=== PATIENT | male | born 1965 | race Caucasian/White ===

== ENCOUNTER 2018-02-11 08:51 | Inpatient (IN) | payer OTHER ==
[2018-02-11 09:32] VITALS: BMI 40.6
--- NOTE | 2018-02-11 11:49 | HP ---
CIWA Score Nausea/Vomitin Muscle Tremors: 2 Anxiety: 2 Agitation: 2 Paroxysmal Sweats: 1-Minimal Palms Moist Orientation: 0-Oriented Tacttile Disturbances: 1-Very Mild Itch/Numbness Auditory Disturbances: 1-Very Mild Visual Disturbances: 1-Very Mild Sensitivity Headache: 2-Mild CIWA-Ar Total Score: 14 - Admission Criteria OASAS Guidelines: Admission for Medically Managed Detox: Requires at least one of the followin. CIWA greater than 12 2. Seizures within the past 24 hours 3. Delirium tremens within the past 24 hours 4. Hallucinations within the past 24 hours 5. Acute intervention needed for co occurring medical disorder 6. Acute intervention needed for co occurring psychiatric disorder 7. Severe withdrawal that cannot be handled at a lower level of care (continued vomiting, continued diarrhea, abnormal vital signs) requiring intravenous medication and/or fluids 8. Patient presents the following: CIWA greater than 12 Admission Criteria Met: Admission criteria met Admission ROS BHS - HPI Chief Complaint: i need help to stop drinking alcohol Allergies/Adverse Reactions: Allergies Allergy/AdvReac Type Severity Reaction Status Date / Time chicken derived Allergy Severe Verified 02/11/18 10:12 Fish Containing Products Allergy Unknown Verified 02/11/18 10:12 No Known Drug Allergies Allergy Verified 02/11/18 10:12 turkey Allergy Intermediate Uncoded 02/11/18 10:12 History of Present Illness: this 52 years old male with alcohol dependence,seeing detox,withdrawal symptom, extensive history of alcoholism since age of 18, history of htn,type 2 dm,nicotine dependence nicotine dependence s/p repair of umbilical hernia in [place] 2017 longest period of sobriety 4 months old mi with stent history of repair incisional hernia Exam Limitations: No Limitations - Ebola screening Have you traveled outside of the country in the last 21 days: No Have you had contact with anyone from an Ebola affected area: No Have you been sick,other than usual withdrawal symptoms: No - Review of Systems Constitutional: Malaise, Night Sweats, Changes in sleep, Unintentional Wgt. Loss EENT: reports: Nose Congestion Respiratory: reports: No Symptoms reported Cardiac: reports: No Symptoms Reported GI: reports: Nausea, Poor Appetite, Abdominal cramping, Other (s/p repair of umbilical hrnia) : reports: No Symptoms Reported Musculoskeletal: reports: Muscle Pain Integumentary: reports: Dryness Neuro: reports: Headache, Tremors Endocrine: reports: No Symptoms Reported Hematology: reports: No Symptoms Reported Psychiatric: reports: No Sypmtoms Reported, Judgement Intact, Mood/Affect Appropiate, Orientated x3 Patient History - Patient Medical History Hx Anemia: No Hx Asthma: No Hx Chronic Obstructive Pulmonary Disease (COPD): No Hx Cancer: No Hx Cardiac Disorders: No Hx Congestive Heart Failure: No Hx Hypertension: Yes (on med) Hx Hypercholesterolemia: Yes (on med; lipitor 20 mg daily) Hx Pacemaker: No HX Cerebrovascular Accident: No Hx Seizures: No Hx Dementia: No Hx Diabetes: Yes (metformin 500 mg bid) Hx Gastrointestinal Disorders: No Hx Liver Disease: No Hx Genitourinary Disorders: No Hx Sexually Transmitted Disorders: No Hx Renal Disease (ESRD): No Hx Thyroid Disease: No Hx Human Immunodeficiency Virus (HIV): No (NEGATIVE HX last 12/21 ) Hx Hepatitis C: No (DENIES) Hx Depression: No Hx Suicide Attempt: No Hx Bipolar Disorder: No Hx Schizophrenia: No Other Medical History: no suicidal,no homicidal - Patient Surgical History Past Surgical History: Yes Hx Neurologic Surgery: No Hx Cataract Extraction: No Hx Cardiac Surgery: Yes (heart attack x1, 5 stents - 2011; 6 STENTS NOW,LAST ONE 2016.) Hx Lung Surgery: No Hx Breast Surgery: No Hx Breast Biopsy: No Hx Abdominal Surgery: Yes (umblical hernia repair [id number] [place]) Hx Appendectomy: No Hx Cholecystectomy: No Hx Genitourinary Surgery: No Hx Section: No Hx Orthopedic Surgery: No Anesthesia Reaction: No - PPD History Previous Implant?: Yes Date: 07/17/13 Results: 0MM PPD to be Administered?: Yes - Smoking Cessation Smoking history: Current every day smoker Have you smoked in the past 12 months: Yes Aproximately how many cigarettes per day: 20 Cigars Per Day: 0 Hx Chewing Tobacco Use: No Initiated information on smoking cessation: Yes 'Breaking Loose' booklet given: 02/11/18 - Substance & Tx. History Hx Alcohol Use: Yes Hx Substance Use: Yes Substance Use Type: Alcohol, Cocaine Hx Substance Use Treatment: Yes ([facility] 12/01/17 o 12/03/17 not completed) - Substances Abused Alcohol Route: Oral Frequency: 3-6 times per week Amount used: 2 pint-1 liter of rum Age of first use: 18 Date of Last Use: 02/10/18 Cocaine Route: Inhalation Frequency: 1-2 times per week Amount used: $90 Age of first use: 20 Date of Last Use: 02/09/18 Family Disease History - Family Disease History Family Disease History: Diabetes: Brother (ASTHMA), Sister (ASTHMA, DM), Other: Mother (ASTHMA) Admission Physical Exam BHS - Vital Signs Vital Signs: Vital Signs - 24 hr 02/11/18 09:26 Temperature 96.4 F L Pulse Rate 88 Respiratory 18 Rate Blood Pressure 149/90 - Physical General Appearance: Yes: Moderate Distress, Obese HEENTM: Yes: Normal ENT Inspection, YUKI, Pharynx Normal Respiratory: Yes: Lungs Clear, Normal Breath Sounds, No Respiratory Distress Neck: Yes: Within Normal Limits, Supple, Trachea in good position Breast: Yes: Within Normal Limits Cardiology: Yes: Within Normal Limits, Regular Rhythm, Regular Rate, S1, S2 Abdominal: Yes: Within Normal Limits, Normal Bowel Sounds, Non Tender, Soft, Surgical Scar Genitourinary: Yes: Within Normal Limits Back: Yes: Muscle Spasm Musculoskeletal: Yes: full range of Motion, Back pain, Muscle Pain Extremities: Yes: Within Normal Limits, Normal Range of Motion, Tremors Neurological: Yes: cloth sander II-XII NML intact, Fully Oriented, Alert, Motor Strength 5/5 Integumentary: Yes: Dry Lymphatic: Yes: Within Normal Limits - Diagnostic (1) Alcohol dependence with uncomplicated withdrawal Current Visit: No Status: Acute (2) Obesity Current Visit: No Status: Active (3) Cocaine dependence Current Visit: No Status: Acute Qualifiers: Substance use status: uncomplicated Qualified Code(s): F14.20 - Cocaine dependence, uncomplicated (4) Diabetes mellitus type 2 in obese Current Visit: No Status: Acute (5) Nicotine dependence Current Visit: No Status: Acute Qualifiers: Nicotine product type: cigarettes Substance use status: in withdrawal Qualified Code(s): F17.213 - Nicotine dependence, cigarettes, with withdrawal (6) Hypercholesteremia Current Visit: No Status: Chronic (7) Hypertension Current Visit: No Status: Chronic Qualifiers: Hypertension type: essential hypertension Qualified Code(s): I10 - Essential (primary) hypertension (8) Myocardial infarction, old Current Visit: No Status: Chronic (9) Stented coronary artery Current Visit: No Status: Chronic (10) History of umbilical hernia repair Current Visit: Yes Status: Acute (11) History of incisional hernia repair Current Visit: Yes Status: Acute Cleared for Admission [facility] - Detox or Rehab [facility] Level of Care: Medically Managed Detox Regimen/Protocol: Librium [facility] Breath Alcohol Content Breath Alcohol Content: 0 Urine Drug Screen - Results Drug Screen Negative: No Urine Drug Screen Results: BZO-Benzodiazepines
[2018-02-11] MEDS ORDERED: ACETAMINOPHEN 325 MG TABLET (FP) PO PRN (12:05)
[2018-02-11] MEDS ORDERED: IBUPROFEN 400 MG TABLET (FP) PO PRN (12:05)
[2018-02-11] MEDS ORDERED: guaiFENesin/D-METHORPHAN HB 10 ML UNIT-DOSE CUPS PO PRN (12:05)
[2018-02-11] MEDS ORDERED: P-EPHED 60MG/TRIPROLIDI 2.5MG TABLET PO PRN (12:05)
[2018-02-11] MEDS ORDERED: MAGNESIUM HYDROX 2400MG/30ML ORAL SUSPENSION 30 ML CUP PO PRN (12:05)
[2018-02-11] MEDS ORDERED: chlordiazePOXIDE HCL 25 MG CAPSULE PO PRN (12:05)
[2018-02-11] MEDS ORDERED: LOPERAMIDE HCL 2 MG CAPSULE PO PRN (12:05)
[2018-02-11] MEDS ORDERED: MENTHOL/PHENOL 1 EACH UD MM PRN (12:05)
[2018-02-11] MEDS ORDERED: MAGNESIUM CITRATE 300 ML BOTTLE PO PRN (12:05)
[2018-02-11] MEDS ORDERED: MAG HYDROX/AL HYDROX/SIMETH 30 ML UNIT-DOSE CUP PO PRN (12:05)
[2018-02-11] MEDS ORDERED: hydrOXYzine PAMOATE 50 MG CAPSULE (FP) PO PRN (12:05)
--- NOTE | 2018-02-11 14:49 | EKG ---
Test Reason : Blood Pressure : / mmHG Vent. Rate : 074 BPM Atrial Rate : 074 BPM P-R Int : 138 ms QRS Dur : 094 ms QT Int : 432 ms P-R-T Axes : 065 042 090 degrees QTc Int : 479 ms NORMAL SINUS RHYTHM NONSPECIFIC T WAVE ABNORMALITY PROLONGED QT ABNORMAL ECG WHEN COMPARED WITH ECG OF 01-DEC-2017 15:16, NO SIGNIFICANT CHANGE WAS FOUND Confirmed by PAUL SANTANA MD ([id number]) on 02/11/2018 2:49:08 PM Referred By: Confirmed By:PAUL SANTANA MD
[2018-02-11] MEDS: metFORMIN HCL 500 MG TABLET (FP) PO SCH (17:00)
[2018-02-11 17:05] LABS: URINE APPEARANCE CLEAR; URINE BILIRUBIN NEGATIVE (<2.0 mg/dL); URINE COLOR LTYELLOW; URINE GLUCOSE (UA) NEGATIVE (NEGATIVE); URINE KETONE NEGATIVE (NEGATIVE); URINE LEUK ESTERASE NEGATIVE (NEGATIVE); URINE NITRITE NEGATIVE (NEGATIVE); URINE PROTEIN NEGATIVE (NEGATIVE); URINE UROBILINOGEN NEGATIVE mg/dL (0.2-1.0)
[2018-02-11] MEDS: chlordiazePOXIDE HCL 25 MG CAPSULE PO SCH ×2 (18:45→23:55)
[2018-02-11] MEDS: THIAMINE HCL 100 MG TABLET (FP) PO SCH (23:55)
[2018-02-11] MEDS: ATORVASTATIN CA 20 MG TABLET (FP) PO SCH (23:55)
[2018-02-12] MEDS: chlordiazePOXIDE HCL 25 MG CAPSULE PO SCH ×4 (05:24→22:22)
[2018-02-12] MEDS ORDERED: glipiZIDE 5 MG TABLET (FP) ONE (05:26)
[2018-02-12] MEDS: metFORMIN HCL 500 MG TABLET (FP) PO SCH ×2 (06:09→17:36)
[2018-02-12] MEDS: glipiZIDE 10 MG TABLET (FP) PO SCH (06:09)
[2018-02-12] MEDS: ASPIRIN 81 MG CHEWABLE TABLETS PO SCH (10:49)
[2018-02-12] MEDS: ENALAPRIL MALEATE 10 MG TABLET (FP) PO SCH (10:49)
[2018-02-12] MEDS: PRENATAL VITAMINS W/ FOLIC ACID TABLET (FP) PO SCH (10:49)
[2018-02-12] MEDS: CLOPIDOGREL BISULFATE 75 MG TABLET (FP) PO SCH (10:49)
[2018-02-12 11:23] LABS: ALBUMIN 3.5 g/dl (3.4-5.0); ALK PHOS 86 U/L (45-117); ANION GAP 6 MMOL/L (8-16); BILIRUBIN,TOTAL 0.4 mg/dL (0.2-1); BLOOD UREA NITROGEN 22 mg/dL (7-18); CALCIUM 8.7 mg/dL (8.5-10.1); CHLORIDE 105 mmol/L (98-107); CO2 26 mmol/L (21-32); CREATININE 1.3 mg/dL (0.55-1.3); GLUCOSE,RANDOM 177 mg/dL (74-106); POTASSIUM 4.3 mmol/L (3.5-5.1); SGOT/AST 16 U/L (15-37); SGPT/ALT 16 U/L (13-61); SODIUM 137 mmol/L (136-145); TOT PROT 7.3 g/dl (6.4-8.2)
[2018-02-12 11:28] LABS: HEMATOCRIT 30.6 % (35.4-49); HEMOGLOBIN 9.9 GM/dL (11.7-16.9); MCH 26.1 pg (25.7-33.7); MCHC 32.4 g/dl (32.0-35.9); MEAN CELL VOLUME 80.8 fl (80-96); MEAN PLT VOLUME 9.6 fl (7.5-11.1); PLATELET COUNT 234 K/MM3 (134-434); RBC 3.79 M/mm3 (4.00-5.60); RDW 15.6 % (11.9-15.9); WHITE BLOOD COUNT 6.2 K/mm3 (4.0-10.0)
--- NOTE | 2018-02-12 20:54 | PN ---
[facility] Progress Note Note: MD'S NOTE: CALLED AT 8:20PM TO SEE THE PT. WHO IS C/O: SUB-STERNAL PAIN - FOR 2 HOURS. IT IS AT 8/10. HAD SEVERAL SIMILAR EPISODES IN THE PAST. DENIES: SOB, PALPITATIONS, N/V O/E: THE PT. IS KEMP X 3, NOT IN DISTRESS AND HE IS WALKING AROUND WITHOUT ANY PROBLEMS. MORBID OBESITY+++. V/S: 97.9-18-79-118/80 S/E: CVS: -JVD, NL HEART SOUNDS, NO MURMURS LUNGS:VESICULAR BREATH SOUNDS, NO RALES, NO RHONCHI ABD: SOFT, NOT, FATTY ABD. WALL++++, B.S.+ IMPRESSION: CHEST PAIN - SEC. TO: MUSCULO-SKELETAL ORIGIN : ANGINA PECTORIS PLANS: EKG: -NO SIGNIFICANT NEW ST-T CHANGES NOTED WHEN COMPARED TO PREVIOUS EKG -S/L NTG - RPN -PROTONIX 40 MGS. PO BID -WILL CONSIDER TRANSFERRING THE PT. TO THE ER IN THE EVENT OF WORSENING SYMPTOMS. -WILL F/U NEEDED. PROVIDER: CHEO WILSON MD
[2018-02-12] MEDS: PANTOPRAZOLE 40 MG TABLET (FP) PO SCH (21:10)
[2018-02-12] MEDS: NITROGLYCERIN SUBLINGUAL 1/150 0.4 MG TAB SL PRN (21:14)
[2018-02-12] MEDS ORDERED: PANTOPRAZOLE 20 MG TABLET (FP) PO SCH (22:00)
[2018-02-12] MEDS: MELATONIN 5 MG TABLETS PO PRN (22:22)
[2018-02-12] MEDS: ATORVASTATIN CA 20 MG TABLET (FP) PO SCH (22:22)
[2018-02-12] MEDS: THIAMINE HCL 100 MG TABLET (FP) PO SCH (22:22)
[2018-02-13] MEDS ORDERED: glipiZIDE 5 MG TABLET (FP) ONE (05:21)
[2018-02-13] MEDS: chlordiazePOXIDE HCL 25 MG CAPSULE PO SCH ×2 (05:40→11:23)
[2018-02-13] MEDS: metFORMIN HCL 500 MG TABLET (FP) PO SCH ×2 (06:38→17:15)
[2018-02-13] MEDS: glipiZIDE 10 MG TABLET (FP) PO SCH (06:39)
[2018-02-13] MEDS: ASPIRIN 81 MG CHEWABLE TABLETS PO SCH (10:51)
[2018-02-13] MEDS: PANTOPRAZOLE 40 MG TABLET (FP) PO SCH ×2 (10:51→22:24)
[2018-02-13] MEDS: CLOPIDOGREL BISULFATE 75 MG TABLET (FP) PO SCH (10:51)
[2018-02-13] MEDS: PRENATAL VITAMINS W/ FOLIC ACID TABLET (FP) PO SCH (10:51)
[2018-02-13] MEDS: ENALAPRIL MALEATE 10 MG TABLET (FP) PO SCH (10:51)
--- NOTE | 2018-02-13 13:15 | PN ---
S CIWA - CIWA Score Nausea/Vomitin-Mild Nausea/No Vomiting Muscle Tremors: 3 Anxiety: 2 Agitation: 1-Slight > Activity Paroxysmal Sweats: 1-Minimal Palms Moist Orientation: 1-Uncertain about Date Tacttile Disturbances: 1-Very Mild Itch/Numbness Auditory Disturbances: 1-Very Mild Visual Disturbances: 0-None Headache: 1-Very Mild CIWA-Ar Total Score: 12 BHS Progress Note (SOAP) Subjective: patient reported that no longer has chest pain sweat tremor mild gi distress restlessness Objective: 02/13/18 13:14 Vital Signs Temperature 97.7 F 02/13/18 09:41 Pulse Rate 92 H 02/13/18 09:41 Respiratory Rate 16 02/13/18 09:41 Blood Pressure 144/61 02/13/18 09:41 O2 Sat by Pulse Oximetry (%) Laboratory Last Values WBC 6.2 K/mm3 (4.0-10.0) 02/12/18 05:40 RBC 3.79 M/mm3 (4.00-5.60) L 02/12/18 05:40 Hgb 9.9 GM/dL (11.7-16.9) L 02/12/18 05:40 Hct 30.6 % (35.4-49) L 02/12/18 05:40 MCV 80.8 fl (80-96) 02/12/18 05:40 MCH 26.1 pg (25.7-33.7) 02/12/18 05:40 MCHC 32.4 g/dl (32.0-35.9) 02/12/18 05:40 RDW 15.6 % (11.9-15.9) D 02/12/18 05:40 Plt Count 234 K/MM3 (134-434) 02/12/18 05:40 MPV 9.6 fl (7.5-11.1) 02/12/18 05:40 Sodium 137 mmol/L (136-145) 02/12/18 05:40 Potassium 4.3 mmol/L (3.5-5.1) 02/12/18 05:40 Chloride 105 mmol/L (98-107) 02/12/18 05:40 Carbon Dioxide 26 mmol/L (21-32) 02/12/18 05:40 Anion Gap 6 MMOL/L (8-16) L 02/12/18 05:40 BUN 22 mg/dL (7-18) H 02/12/18 05:40 Creatinine 1.3 mg/dL (0.55-1.3) 02/12/18 05:40 Creat Clearance w eGFR 57.97 (>60) 02/12/18 05:40 POC Glucometer 220 UNITS (80-120) 02/13/18 05:39 Random Glucose 177 mg/dL (74-106) H 02/12/18 05:40 Calcium 8.7 mg/dL (8.5-10.1) 02/12/18 05:40 Total Bilirubin 0.4 mg/dL (0.2-1) 02/12/18 05:40 AST 16 U/L (15-37) 02/12/18 05:40 ALT 16 U/L (13-61) 02/12/18 05:40 Alkaline Phosphatase 86 U/L (45-117) 02/12/18 05:40 Total Protein 7.3 g/dl (6.4-8.2) 02/12/18 05:40 Albumin 3.5 g/dl (3.4-5.0) 02/12/18 05:40 Urine Color Ltyellow 02/11/18 15:30 Urine Appearance Clear 02/11/18 15:30 Urine pH 6.0 (5.0-8.0) 02/11/18 15:30 Ur Specific [place] 1.014 (1.010-1.035) 02/11/18 15:30 Urine Protein Negative (NEGATIVE) 02/11/18 15:30 Urine Glucose (UA) Negative (NEGATIVE) 02/11/18 15:30 Urine Ketones Negative (NEGATIVE) 02/11/18 15:30 Urine Blood Negative (NEGATIVE) 02/11/18 15:30 Urine Nitrite Negative (NEGATIVE) 02/11/18 15:30 Urine Bilirubin Negative (<2.0 mg/dL) 02/11/18 15:30 Urine Urobilinogen Negative mg/dL (0.2-1.0) 02/11/18 15:30 Ur Leukocyte Esterase Negative (NEGATIVE) 02/11/18 15:30 RPR Titer Nonreactive (NONREACTIVE) 02/12/18 05:40 lab noted Assessment: 02/13/18 13:14 withdrawal sx discuss alcohol related cardiac and muscular complication Plan: continue detox
[2018-02-13] MEDS: chlordiazePOXIDE 5 MG CAPSULE PO SCH ×2 (17:15→22:24)
[2018-02-13] MEDS: MELATONIN 5 MG TABLETS PO PRN (22:24)
[2018-02-13] MEDS: THIAMINE HCL 100 MG TABLET (FP) PO SCH (22:24)
[2018-02-13] MEDS: ATORVASTATIN CA 20 MG TABLET (FP) PO SCH (22:24)
[2018-02-14] MEDS ORDERED: glipiZIDE 5 MG TABLET (FP) ONE ×2 (04:58→05:25)
[2018-02-14] MEDS: chlordiazePOXIDE 5 MG CAPSULE PO SCH ×2 (05:23→10:39)
[2018-02-14] MEDS: metFORMIN HCL 500 MG TABLET (FP) PO SCH ×2 (08:03→18:22)
[2018-02-14] MEDS: glipiZIDE 10 MG TABLET (FP) PO SCH (08:03)
--- NOTE | 2018-02-14 10:03 | PN ---
[facility] CIWA - CIWA Score Nausea/Vomitin-No Nausea/No Vomiting Muscle Tremors: 3 Anxiety: 3 Agitation: 3 Paroxysmal Sweats: 3 Orientation: 0-Oriented Tacttile Disturbances: 0-None Auditory Disturbances: 0-None Visual Disturbances: 0-None Headache: 0-None Present CIWA-Ar Total Score: 12 S Progress Note (SOAP) Subjective: body aches sweats shakes interrupted sleep Objective: 02/14/18 10:02 Vital Signs Temperature 97.5 F L 02/14/18 09:33 Pulse Rate 101 H 02/14/18 09:33 Respiratory Rate 18 02/14/18 09:33 Blood Pressure 124/67 02/14/18 09:33 O2 Sat by Pulse Oximetry (%) Laboratory Tests 02/11/18 02/11/18 02/11/18 10:34 15:30 16:44 WBC RBC Hgb Hct MCV MCH MCHC RDW Plt Count MPV Sodium Potassium Chloride Carbon Dioxide Anion Gap BUN Creatinine Creat Clearance w eGFR POC Glucometer 191 267 Random Glucose Calcium Total Bilirubin AST ALT Alkaline Phosphatase Total Protein Albumin Urine Color Ltyellow Urine Appearance Clear Urine pH 6.0 Ur Specific [place] 1.014 Urine Protein Negative Urine Glucose (UA) Negative Urine Ketones Negative Urine Blood Negative Urine Nitrite Negative Urine Bilirubin Negative Urine Urobilinogen Negative Ur Leukocyte Esterase Negative RPR Titer 02/12/18 02/12/18 02/12/18 05:27 05:40 05:40 WBC 6.2 RBC 3.79 L Hgb 9.9 L Hct 30.6 L MCV 80.8 MCH 26.1 MCHC 32.4 RDW 15.6 D Plt Count 234 MPV 9.6 Sodium 137 Potassium 4.3 Chloride 105 Carbon Dioxide 26 Anion Gap 6 L BUN 22 H Creatinine 1.3 Creat Clearance w eGFR 57.97 POC Glucometer 122 Random Glucose 177 H Calcium 8.7 Total Bilirubin 0.4 AST 16 ALT 16 Alkaline Phosphatase 86 Total Protein 7.3 Albumin 3.5 Urine Color Urine Appearance Urine pH Ur Specific [place] Urine Protein Urine Glucose (UA) Urine Ketones Urine Blood Urine Nitrite Urine Bilirubin Urine Urobilinogen Ur Leukocyte Esterase RPR Titer 02/12/18 02/12/18 02/13/18 05:40 16:43 05:39 WBC RBC Hgb Hct MCV MCH MCHC RDW Plt Count MPV Sodium Potassium Chloride Carbon Dioxide Anion Gap BUN Creatinine Creat Clearance w eGFR POC Glucometer 133 220 Random Glucose Calcium Total Bilirubin AST ALT Alkaline Phosphatase Total Protein Albumin Urine Color Urine Appearance Urine pH Ur Specific [place] Urine Protein Urine Glucose (UA) Urine Ketones Urine Blood Urine Nitrite Urine Bilirubin Urine Urobilinogen Ur Leukocyte Esterase RPR Titer Nonreactive 02/13/18 02/14/18 16:19 05:23 WBC RBC Hgb Hct MCV MCH MCHC RDW Plt Count MPV Sodium Potassium Chloride Carbon Dioxide Anion Gap BUN Creatinine Creat Clearance w eGFR POC Glucometer 128 129 Random Glucose Calcium Total Bilirubin AST ALT Alkaline Phosphatase Total Protein Albumin Urine Color Urine Appearance Urine pH Ur Specific [place] Urine Protein Urine Glucose (UA) Urine Ketones Urine Blood Urine Nitrite Urine Bilirubin Urine Urobilinogen Ur Leukocyte Esterase RPR Titer aaox3 ambulating no acute distress Assessment: 02/14/18 10:03 withdrawal sx Plan: continue detox increase fluids d/c in am
[2018-02-14] MEDS: ASPIRIN 81 MG CHEWABLE TABLETS PO SCH (10:38)
[2018-02-14] MEDS: ENALAPRIL MALEATE 10 MG TABLET (FP) PO SCH (10:39)
[2018-02-14] MEDS: PRENATAL VITAMINS W/ FOLIC ACID TABLET (FP) PO SCH (10:39)
[2018-02-14] MEDS: PANTOPRAZOLE 40 MG TABLET (FP) PO SCH ×2 (10:39→22:46)
[2018-02-14] MEDS: CLOPIDOGREL BISULFATE 75 MG TABLET (FP) PO SCH (10:39)
[2018-02-14] MEDS: chlordiazePOXIDE HCL 10 MG CAPSULE PO SCH ×2 (18:22→22:46)
[2018-02-14] MEDS: MELATONIN 5 MG TABLETS PO PRN (22:46)
[2018-02-14] MEDS: ATORVASTATIN CA 20 MG TABLET (FP) PO SCH (22:46)
[2018-02-14] MEDS: THIAMINE HCL 100 MG TABLET (FP) PO SCH (22:46)
--- NOTE | 2018-02-14 23:19 | PN ---
[facility] Progress Note Note: Patient requesting to leave this evening. States I just want to go. After discussion patient agreed to stay.
[2018-02-15] MEDS: NITROGLYCERIN SUBLINGUAL 1/150 0.4 MG TAB SL PRN ×2 (00:26→00:45)
[2018-02-15 01:07] VITALS: BP 126/73; PULSE 99; TEMP 96
--- NOTE | 2018-02-15 01:15 | PN ---
S Progress Note Note: ASKED TO SEE PATIENT FOR C/O C.P UNRELIEVED WITH NITRO SL X2. CLIENT REPORTS BURNING TO LEFT CHEST RADIATING DOWN LEFT ARM AND UP LEFT NECK WITH ASSOCIATED NUMBNESS TO LEFT HAND DIGITS X 2 HOURS. REPORTS PAIN IS 8/10 AND SOB. "I WANT TO GO TO THE HOSPITAL" DENIES N/V/D, FEVER, CHILLS, DIZZINESS. Last Vital Signs Temp Pulse Resp BP Pulse Ox 96 F L 99 H 20 126/73 02/15/18 00:57 02/15/18 00:57 02/15/18 00:57 02/15/18 00:57 SEEN AMBULATING ON UNIT W/O DISTRESS; ASKED TO GO TO HIS ROOM FOR EXAM CLIENT IS A/O X3 NAD, MORBIDLY OBESE SEATED COMFORTABLY ON BEDSIDE CVS: -JVD, RRR, NO MURMURS LUNGS:CTAB, NO RALES, NO RHONCHI; O2 SAT 98% RA ABD: PROTRUBENT FATTY ABD SOFT, NT/ND + BS X4 A- 52 Y.O. MALE WITH HX/O ALCOHOLISM AND COCAINE DEPENDENCE WITH EXTENSIVE CARDIAC DISEASE C/O C.P. X2 EPISODES SINCE ADMISSION NOT RELIEVED WITH NITRO X2 TODAY. PMHX- HTN, DM CAD, CARDIAC STENTS AND HX/O ME P-EKG C/W PREVIOUS EKG'S NO ACUTE CHANGES - NSR, T WAVE ABN, CONSIDER LATERAL ISCHEMIA TRANSFER TO [facility] ER FOR EVAL REPORT GIVEN TO EDDIE SALAZAR
--- NOTE | 2018-02-15 08:50 | PN ---
S Progress Note Note: pt admitted to [facility] for chest pain. Pt is d/c from [facility] detox. pt completed detox.
--- NOTE | 2018-02-15 08:54 | DS ---
[facility] Detox Discharge Summary Admission Date: 02/11/18 Discharge Date: 02/15/18 - History Present History: Alcohol Dependence - Physical Exam Results Vital Signs: Vital Signs Temperature 96 F L 02/15/18 00:57 Pulse Rate 99 H 02/15/18 00:57 Respiratory Rate 20 02/15/18 00:57 Blood Pressure 126/73 02/15/18 00:57 O2 Sat by Pulse Oximetry (%) - Treatment Hospital Course: Detox Protocol Followed, Responded well - Medication Discharge Medications: Ambulatory Orders Atorvastatin Ca [Lipitor] 20 mg PO HS #0 tablet 01/30/13 Clopidogrel Bisulfate [Plavix -] 75 mg PO DAILY #1 tablet 01/30/13 Enalapril Maleate [Vasotec -] 20 mg PO DAILY #1 tablet 01/30/13 Glipizide [Glucotrol -] 10 mg PO ACBK #1 tablet 01/30/13 Aspirin [ASA -] 81 mg PO DAILY #30 tab.chew 04/30/13 metFORMIN HCL [Glucophage -] 500 mg PO BIDAC #60 tablet 08/23/13 - AMA Did Patient Leave Against Medical Advice: No (admitted to [facility] for chest pain)
--- NOTE | 2018-02-15 16:14 | EKG ---
Test Reason : Blood Pressure : / mmHG Vent. Rate : 095 BPM Atrial Rate : 095 BPM P-R Int : 140 ms QRS Dur : 092 ms QT Int : 384 ms P-R-T Axes : 060 047 111 degrees QTc Int : 482 ms NORMAL SINUS RHYTHM T WAVE ABNORMALITY, CONSIDER LATERAL ISCHEMIA Consider anterolateral ischemia ABNORMAL ECG Confirmed by MD Plasencia Edward ([id number]) on 02/15/2018 4:14:03 PM Referred By: Confirmed By:Romel Plasencia MD
== END 2018-02-15 08:07 | disposition short-term general hospital (02) | DRG 774 ==
LOC: YASAS 08:51 → Y6N 12:06
PROC: HZ2ZZZZ Detoxification Services for Substance Abuse Treatment (ICD-10-PCS; principal; 2018-02-11)
DX: F10.230 Alcohol dependence with withdrawal, uncomplicated (principal); F14.20 Cocaine dependence, uncomplicated; F17.213 Nicotine dependence, cigarettes, with withdrawal; I10 Essential (primary) hypertension; I25.10 Atherosclerotic heart disease of native coronary artery without angina pectoris; I25.2 Old myocardial infarction; E11.9 Type 2 diabetes mellitus without complications; E78.00 Pure hypercholesterolemia, unspecified; R07.9 Chest pain, unspecified; E66.9 Obesity, unspecified; Z68.41 Body mass index [BMI] 40.0-44.9, adult; Z91.013 Allergy to seafood; Z95.5 Presence of coronary angioplasty implant and graft; Z79.84 Long term (current) use of oral hypoglycemic drugs; Z79.82 Long term (current) use of aspirin; Z91.012 Allergy to eggs
CPT/HCPCS: 36415; 80053; 81003; 82962; 85027; 86593; 93005; 93010

== ENCOUNTER 2018-02-15 01:49 | Observation (INO) | payer OTHER ==
[2018-02-15] MEDS ORDERED: ASPIRIN 81 MG CHEWABLE TABLETS PO ONE (02:05)
--- NOTE | 2018-02-15 02:05 | PDOC ---
History of Present Illness - General Chief Complaint: Chest Pain Stated Complaint: CHEST PAIN Time Seen by Provider: 02/15/18 02:05 History Source: Patient Exam Limitations: No Limitations - History of Present Illness Initial Comments: 02/15/18 02:07 Mr Flores is a 52 yo M who presents to the ER with a complaint of chest pain He has a h/o CVA, MT (s/p stent x 6), obesity, DM II, HTN, HLD, alcohol and cocaine abuse He was just admitted to [facility] for detox He reported chest pain which began while doing nothing in particular, pain is 8/ 10, no radiation to the arm/jaw/back No nausea, (+) diaphoresis He was given Nitro x 2 with minimal relief He has noted numbness to the left hand No fevers or chills No cough No lower extremity edema Pt followed by [facility] - most recent stress test several months ago (per patient, this was negative) 02/15/18 02:09 02/15/18 02:42 PMH: DM, HTN, HLD, CAD s/p PCI and stenting, PSH: CABG Meds: please see MAR All: NKDA Social: NKDA ROS: GENERAL/CONSTITUTIONAL: No: fever, chills, weakness, loss of appetite. HEAD, EYES, EARS, NOSE AND THROAT: No: change in vision, ear pain, discharge, sore throat, throat swelling. CARDIOVASCULAR: Yes: chest pain No: lightheadedness, palpitations, syncope RESPIRATORY: No: cough, shortness of breath, wheezing, hemoptysis, stridor. GASTROINTESTINAL: No: nausea, vomiting, diarrhea, abdominal pain GENITOURINARY: No: dysuria, hematuria, frequency, urgency, flank pain. MUSCULOSKELETAL: No: back pain, neck pain, joint pain, muscle swelling or pain SKIN AND BREASTS: No: lesions, pallor, rash or easy bruising. NEUROLOGIC: No: headache, vertigo, paresthesias, weakness ENDOCRINE: No: unexplained weight gain or loss HEMATOLOGIC/LYMPHATIC: No: anemia, easy bleeding, swelling nodes. PE: GENERAL: The patient is in no acute distress. HEAD: Normal with no signs of trauma. EYES: PERRLA, EOMI, sclera anicteric, conjunctiva clear. ENT: Ears normal, nares patent, oropharynx clear without exudates. Moist mucous membranes. NECK: Normal range of motion, supple without lymphadenopathy, JVD, or masses. LUNGS: Breath sounds equal, clear to auscultation bilaterally. No wheezes, and no crackles. HEART:Regular rate and rhythm, normal S1 and S2 without murmur, rub or gallop. ABDOMEN: Soft, nontender, normoactive bowel sounds. No guarding, no rebound. No masses palpable. EXTREMITIES: Normal range of motion, no edema. NEUROLOGICAL: Cranial nerves II through XII grossly intact. Normal speech. No focal neurological deficits. MUSCULOSKELETAL: Back non-tender to palpation SKIN: midline sternotomy scar with evidence of healing by 2nd intention Past History - Past Medical History Allergies/Adverse Reactions: Allergies Allergy/AdvReac Type Severity Reaction Status Date / Time chicken derived Allergy Severe Verified 02/15/18 02:07 Fish Containing Products Allergy Unknown Verified 02/15/18 02:07 No Known Drug Allergies Allergy Verified 02/15/18 02:07 turkey Allergy Intermediate Uncoded 02/15/18 02:07 Home Medications: Ambulatory Orders Atorvastatin Ca [Lipitor] 20 mg PO HS #0 tablet 01/30/13 Clopidogrel Bisulfate [Plavix -] 75 mg PO DAILY #1 tablet 01/30/13 Enalapril Maleate [Vasotec -] 20 mg PO DAILY #1 tablet 01/30/13 Glipizide [Glucotrol -] 10 mg PO ACBK #1 tablet 01/30/13 Aspirin [ASA -] 81 mg PO DAILY #30 tab.chew 04/30/13 metFORMIN HCL [Glucophage -] 500 mg PO BIDAC #60 tablet 08/23/13 Anemia: No Asthma: No Cancer: No Cardiac Disorders: No CVA: No COPD: No CHF: No Dementia: No Diabetes: Yes (metformin 500 mg bid) GI Disorders: No Disorders: No HTN: Yes (on med) Hypercholesterolemia: Yes (on med; lipitor 20 mg daily) Kidney Stones: No Liver Disease: No Seizures: No Thyroid Disease: No - Surgical History Abdominal Surgery: Yes (umblical hernia repair [id number] [place]) Appendectomy: No Cardiac Surgery: Yes (heart attack x1, 5 stents - 2011; 6 STENTS NOW,LAST ONE 2016.) Cholecystectomy: No Lung Surgery: No Neurologic Surgery: No Orthopedic Surgery: No - Reproductive History Testicular Surgery: No - Immunization History Immunization Up to Date: Yes - Suicide/Smoking/Psychosocial Hx Smoking Status: Yes Smoking History: Current every day smoker Years of Tobacco Use: 13 Have you smoked in the past 12 months: Yes Number of Cigarettes Smoked Daily: 20 Cigars Per Day: 0 'Breaking Loose' booklet given: 02/11/18 Hx Alcohol Use: Yes Drug/Substance Use Hx: Yes Substance Use Type: Alcohol, Cocaine Hx Substance Use Treatment: Yes ([facility] 12/01/17 o 12/03/17 not completed) ED Treatment Course - LABORATORY CBC & Chemistry Diagram: 02/15/18 02:55 02/15/18 02:55 Medical Decision Making - Medical Decision Making 02/15/18 02:47 Differential includes cardiac ischemia, pe, asthma exacerbation, pneumonia, pneumothorax, pleural effusion, costochondritis, pericarditis, GERD. Will do: Labs EKG CXR Admit 02/15/18 04:27 Laboratory Tests 02/15/18 02/15/18 02:55 02:55 WBC 8.4 Hgb 10.0 L Hct 29.7 L Plt Count 234 BUN 13 Creatinine 1.2 Creatine Kinase 227 Troponin I < 0.02 B-Natriuretic Peptide 766.3 H EKG: NSR rate of 84 bpm, axis nml, intervals nml, no st elevations or depressions, t wave inversion I, aVL Given this patient's history, will place on observation *DC/Admit/Observation/Transfer Diagnosis at time of Disposition: Chest pain Qualifiers: Chest pain type: unspecified Qualified Code(s): R07.9 - Chest pain, unspecified - Discharge Dispostion Condition at time of disposition: Stable Decision to Admit order: Yes - Referrals - Patient Instructions - Post Discharge Activity
[2018-02-15 02:07] VITALS: TEMP 98.4; BMI 36.6
[2018-02-15] MEDS ORDERED: ASPIRIN 81 MG CHEWABLE TABLETS ONE ×2 (03:07→12:02)
[2018-02-15 03:30] LABS: BASO % 0.8 % (0-2.0); EOS % 4.7 % (0-4.5); HEMATOCRIT 29.7 % (35.4-49); LYMPH % 23.6 % (8-40); MCH 26.8 pg (25.7-33.7); MCHC 33.7 g/dl (32.0-35.9); MEAN CELL VOLUME 79.4 fl (80-96); MEAN PLT VOLUME 8.3 fl (7.5-11.1); MONO % 9.1 % (3.8-10.2); NEUT % 61.8 % (42.8-82.8); PLATELET COUNT 234 K/MM3 (134-434); RBC 3.73 M/mm3 (4.00-5.60); RDW 16.1 % (11.9-15.9); WHITE BLOOD COUNT 8.4 K/mm3 (4.0-10.0)
[2018-02-15 03:52] LABS: INR 1.03 (0.83-1.09); PROTHROMBIN TIME (PATIENT) 12.2 SEC (9.7-13.0)
[2018-02-15 04:05] LABS: ALBUMIN 3.3 g/dl (3.4-5.0); ALK PHOS 83 U/L (45-117); ANION GAP 7 MMOL/L (8-16); BILIRUBIN,TOTAL 0.3 mg/dL (0.2-1); BLOOD UREA NITROGEN 13 mg/dL (7-18); CALCIUM 8.7 mg/dL (8.5-10.1); CHLORIDE 107 mmol/L (98-107); CO2 26 mmol/L (21-32); CREATININE 1.2 mg/dL (0.55-1.3); GLUCOSE,RANDOM 91 mg/dL (74-106); MAGNESIUM 1.7 mg/dL (1.8-2.4); N-TERMINAL BNP 766.3 pg/ml (5-125); SGOT/AST 17 U/L (15-37); SGPT/ALT 14 U/L (13-61); SODIUM 140 mmol/L (136-145); TOT PROT 7.2 g/dl (6.4-8.2)
--- NOTE | 2018-02-15 06:32 | HP ---
CHIEF COMPLAINT: Chest pain x 1day PCP: [facility] HISTORY OF PRESENT ILLNESS: Pt is a 52 yo M with PMHx of CVA, GA (s/p stent x 6) , obesity, DM II, HTN, HLD, alcohol and cocaine abuse presenting with hx of retrosternal chest pain that started at about 11am yesterday at detox in [facility]. The pain was sharp, 8/10 started at rest with diaphoresis, with radiation to L arm/face/neck, and associated tingling of the left arm. The pain is non reproducible, not relieved with nitro at [facility], and no other known relieving factors. Pt reports associated shortness of breath and orthopnea. Patient reported this pain is similar to the pain he experienced when he had his heart attack. Pt arrived in the ED at about 2am today, due to persistence of the pain, but patient was noted to rest comfortably in the ED, although he reported he only had intermittent relief of the chest pain. He reports getting the stents around Nov 2016. No fevers or chills, no cough, no lower extremity swelling. Pt reported getting a catheter about 2 months ago at [facility] but is unable to say the results. Pt reports last use of cocaine was 3 weeks ago, and last drink was 2 weeks ago. ER course was notable for: (1)cardiac profile negative (2)EKG- NSR-84bpm, TWI lead 1, avl, no change in lateral lead non specific changes from before (3) Recent Travel: PAST MEDICAL HISTORY: PAST SURGICAL HISTORY: Social History: Smoking: Everyday 10cigs/day Alcohol:EToh abuse Drugs: Cocaine Family History: Allergies chicken derived Allergy (Severe, Verified 02/15/18 02:07) TURKEY ALLERGY Fish Containing Products Allergy (Unknown, Verified 02/15/18 02:07) No Known Drug Allergies Allergy (Verified 02/15/18 02:07) turkey Allergy (Intermediate, Uncoded 02/15/18 02:07) HOME MEDICATIONS: Home Medications Medication Instructions Recorded Atorvastatin Ca [Lipitor] 20 mg PO HS #0 tablet 01/30/13 Clopidogrel Bisulfate [Plavix -] 75 mg PO DAILY #1 tablet 01/30/13 Enalapril Maleate [Vasotec -] 20 mg PO DAILY #1 tablet 01/30/13 Glipizide [Glucotrol -] 10 mg PO ACBK #1 tablet 01/30/13 Aspirin [ASA -] 81 mg PO DAILY #30 tab.chew 04/30/13 metFORMIN HCL [Glucophage -] 500 mg PO BIDAC #60 tablet 08/23/13 REVIEW OF SYSTEMS CONSTITUTIONAL: Absent: fever, chills, diaphoresis, generalized weakness, malaise, loss of appetite, weight change HEENT: Absent: rhinorrhea, nasal congestion, throat pain, throat swelling, difficulty swallowing, mouth swelling, ear pain, eye pain, visual changes CARDIOVASCULAR: Absent: chest pain, syncope, palpitations, irregular heart rate, lightheadedness , peripheral edema RESPIRATORY: Absent: cough, shortness of breath, dyspnea with exertion, orthopnea, wheezing, stridor, hemoptysis GASTROINTESTINAL: Absent: abdominal pain, abdominal distension, nausea, vomiting, diarrhea, constipation, melena, hematochezia GENITOURINARY: Absent: dysuria, frequency, urgency, hesitancy, hematuria, flank pain, genital pain MUSCULOSKELETAL: Absent: myalgia, arthralgia, joint swelling, back pain, neck pain SKIN: Absent: rash, itching, pallor HEMATOLOGIC/IMMUNOLOGIC: Absent: easy bleeding, easy bruising, lymphadenopathy, frequent infections ENDOCRINE: Absent: unexplained weight gain, unexplained weight loss, heat intolerance, cold intolerance NEUROLOGIC: Absent: headache, focal weakness or paresthesias, dizziness, unsteady gait, seizure, mental status changes, bladder or bowel incontinence PSYCHIATRIC: Absent: anxiety, depression, suicidal or homicidal ideation, hallucinations. PHYSICAL EXAMINATION Vital Signs - 24 hr 02/15/18 01:50 Temperature 98.4 F Pulse Rate 79 Respiratory 18 Rate Blood Pressure 126/71 O2 Sat by Pulse 98 Oximetry (%) GENERAL: Obese male, in no acute distress, Awake, alert, and fully oriented, in no obvious respiratory distress. HEAD: Normal with no signs of trauma. EYES: Pupils equal, round and reactive to light, extraocular movements intact, sclera anicteric, conjunctiva clear. EARS, NOSE, THROAT: Ears normal, nares patent, oropharynx clear without exudates. Moist mucous membranes. NECK: Normal range of motion, supple without lymphadenopathy, JVD, or masses. LUNGS: Rhonchi bilaterally HEART: Midline sternotomy healed scar. Distant heart sounds (likely due to body habitus) Regular rate and rhythm, normal S1 and S2 without murmur, rub or gallop. ABDOMEN: obese, Soft, nontender, not distended, normoactive bowel sounds, no guarding, no rebound, no masses. MUSCULOSKELETAL: Normal range of motion at all joints. No bony deformities or tenderness. No CVA tenderness. UPPER EXTREMITIES: 2+ pulses, warm, well-perfused. No cyanosis. No clubbing. No peripheral edema. LOWER EXTREMITIES: 2+ pulses, warm, well-perfused. No calf tenderness. No peripheral edema. NEUROLOGICAL: No facial droop or asymmetry. Reduced light touch sensation L face. Power 5/5 b/l UEs and LEs. Cranial nerves II-XII intact. Normal speech. gait not observed. PSYCHIATRIC: Cooperative. Flat affect. SKIN: Warm, dry, normal turgor, no rashes or lesions noted, normal capillary refill. Laboratory Results - last 24 hr 02/15/18 02/15/18 02/15/18 02:55 02:55 02:55 WBC 8.4 RBC 3.73 L Hgb 10.0 L Hct 29.7 L MCV 79.4 L MCH 26.8 MCHC 33.7 RDW 16.1 H Plt Count 234 MPV 8.3 D Absolute Neuts (auto) 5.2 Neutrophils % 61.8 Lymphocytes % 23.6 D Monocytes % 9.1 Eosinophils % 4.7 H D Basophils % 0.8 Nucleated RBC % 0 PT with INR 12.20 INR 1.03 Sodium 140 Potassium 4.0 Chloride 107 Carbon Dioxide 26 Anion Gap 7 L BUN 13 Creatinine 1.2 Creat Clearance w eGFR > 60 Random Glucose 91 Calcium 8.7 Magnesium 1.7 L Total Bilirubin 0.3 AST 17 ALT 14 Alkaline Phosphatase 83 Creatine Kinase 227 Creatine Kinase Index 1.4 CK-MB (CK-2) 3.3 Troponin I < 0.02 B-Natriuretic Peptide 766.3 H Total Protein 7.2 Albumin 3.3 L Current Medications Aspirin (Asa -) 81 mg PO DAILY [facility] Atorvastatin Calcium (Lipitor -) 20 mg PO HS [facility] Chlordiazepoxide HCl (Librium -) 50 mg PO [id number] [facility] Stop: 02/15/18 23:01 Chlordiazepoxide HCl (Librium -) 25 mg PO [id number] [facility] Stop: 02/16/18 23:01 Chlordiazepoxide HCl (Librium -) 15 mg PO [id number] [facility]JANDR[facility] Stop: 02/17/18 23:01 Chlordiazepoxide HCl (Librium -) 25 mg PO Q4H PRN PRN Reason: WITHDRAWAL(CONT SUBST) Stop: 02/18/18 07:02 Chlordiazepoxide HCl (Librium -) 10 mg PO [id number] MARIA ALEJANDRA Stop: 02/18/18 23:01 Clopidogrel Bisulfate (Plavix -) 75 mg PO DAILY [facility] Enalapril Maleate (Vasotec -) 20 mg PO DAILY [facility] Insulin Aspart (Novolog Vial Sliding Scale -) 1 vial SQ ACHS [facility]; Protocol Magnesium Sulfate (Magnesium Sulfate) 4 gm IVPB ONCE ONE Stop: 02/15/18 06:43 ASSESSMENT/PLAN: Pt is a 52 yo M with PMHx of CVA, GA (s/p stent x 6), obesity, DM II, HTN, HLD , alcohol and cocaine abuse presenting with hx of chest pain for 1 day Chest pain R/o ACS Trend trops, cardiac profile ECHO cards consult- Dr Cameron lipid profile HgbA1c Tele obs Follow cardiology records- cardiac cath office [facility]- [phone] (unable to reach anyone) utox Magnesium 4g stat iv lasix 20mg stat Cont plavix, asa Poly substance abuse (alcohol and cocaine abuse ) Not actively withdrawing, was at [facility] for detox Consider Detox consult- Dr Keshawn Delgado protocol Utox Fall precautions Elevate head of bed CVA, GA (s/p stent x 6), Cont ASA, plavix Lipid profile Cont statins Cont enalapril Elevated BNP 766.3 Iv lasix 20mg stat obesity Diet and exercise counselling when appropriate Lipid profile Cont statins May benefit from NICK management DM II Hold metformin and glipizide BGM ACHS ISS ACHS HgbA1c HTN Cont enalapril HLD Cont statins FEN No standing fluids Monitor lytes Diabetic /sodum controlled diet PPx Heparin subq Dispo: Tele Obs Visit type - Emergency Visit Emergency Visit: Yes ED Registration Date: 02/15/18 Care time: The patient presented to the Emergency Department on the above date and was hospitalized for further evaluation of their emergent condition. - New Patient This patient is new to me today: Yes Date on this admission: 02/15/18 - Critical Care Critical Care patient: No
[2018-02-15] MEDS ORDERED: FUROSEMIDE 40 MG/4 ML INJECTABLE VIAL IVPUSH ONE (06:42)
[2018-02-15] MEDS ORDERED: MAGNESIUM SULF 50% (8.12 MEQ/2 ML-1 GM VIAL) IVPB ONE (06:42)
--- NOTE | 2018-02-15 06:58 | PN ---
Teaching Attending Note Name of Resident: Kourtney Barrett ATTENDING PHYSICIAN STATEMENT I saw and evaluated the patient. I reviewed the resident's note and discussed the case with the resident. I agree with the resident's findings and plan as documented. SUBJECTIVE: Seen and examined; he is sleeping in the ER bed and answering questions with one to two words and moans and a suboptimal historian. Please refer to resident note for further detail. This is a 52 y/o CM in detox for alcohol/drug issues presenting to the ER for chest pain. He has a marked history of cardiac issues which he is followed for at [facility]; we have no records and are in the process of obtaining these. He states he got a cath through his groin about 3 months ago; ER records say he told them he got a negative stress test several months ago as well. His CP, while reproducible to palpation at the L-sternal border, is somewhat convincing. He tells us this is the same pain he had with CV issues in the past, that it radiates up his neck and down his arm with parastesias. He had these sx on 02/12 but did not go to the ER and was worked up in detox. Today he got 2x nitro which didn't help immediately but when I saw him he was only having pain to palpation. He is a very high risk patient for CAD and thus will be monitored on the medicine service with CV consultation. Will get his old records to help guide care which is essential in this patient. 10 sys ROS done and negative aside from HPI PMH and PSH reviewed and are per chart; obesity, DM, CAD (s/p 6x PCI and CABG), anemia, HTN, HLD, EtOH/Cocaine abuse FH reviewed Socially does have history of alcohol/cocaine abuse, currently smokes half pack per day. OBJECTIVE: VS, labs, imaging reviewed NAD, resting in bed comfortably Reproducible CP at the [facility] with RRR s1/2 no mgr Lung exam is difficult due to habitus but is mostly clear NT ND +BS No LE edema, +peripheral pulses CN2-12 grossly intact, no FND Blunted affect with normal mood and appropriate behavior CXR without acute disease on my interpretation with final read pending EKG with T-wave inversions in I and aVL and no concerning contiguous lead changes Labs show low Mg at 1.7, normal renal function, negative troponin and CkMB, stable anemia, BNP is higher than it has ever been in 600-range. Telemetry without acute findings; continue to review Old records have been requested by resident and are pending ASSESSMENT AND PLAN: Mr. Flores is a 52 y/o male with CP presenting from detox; he is hemodynamically stable and afebrile with negative troponin. He is a poor historian and all his records are elsewhere; given the fact that he is at extremely high risk for CAD we will bring him in and consult cardiology to review his case and to make further recommendations for workup. 1) Chest Pain in high risk adult -R/O ACS; trend troponin, monitor on telemetry. -Consulting cardiology; he alludes to a recent workup so we need to obtain those records and see what vessels are involved in his disease, his echo, etc. This will be useful in planning for further workup (if he needs stress test vs. echo vs. other). -Appreciate specialist input; initial troponin and CKMb negative. 2) CAD s/p PCI, CABG -Unknown vessel involvement; obtaining old recs -Continue home medications -Check A1c, lipids, TSH. Adjust home meds as needed to maintain appropriate control using GDMT. -Further management as per cardiology; appreicate their input 3) Elevated BNP -Has not been elevated to this degree at our facility; can compare to OSH -At risk for diastolic dysfunction as well as cardiomyopathies given alcohol, cocaine use alongside CAD -Checking echo and will followup with CV. Can consider a lasix dose but will hold off for now as his respiratory status is doing well 4) EtOH/Cocaine Abuse -Was in detox for this; plan to dispo back to there post hospital stay -Continue on CIWA monitoring here -Out of the window for christy DTs likely but still be cautious given his history. 5) Anemia -Trend; XF goal >8 6) H/O CVA -Continue with ASA, statin -Lifestyle modification counseling 7) Hypoalbuminemia -Consider outpatient prealbumin 8) Hypomagnesemia -Replete with 4g and recheck in AM 9) HTN -Continue home meds; taper as needed for GDMT. 10) HLD -Check lipids; continue home statin 11) Obesity -Check sleep study as outpatient. -Weight Tester regarding diet and exercise prior to DC DVT px: heparin GI px not indiciated FENA -Not indicated -Monitor and replace; giving Mg -Cardiac diet -As tolerated Full Code
[2018-02-15] MEDS ORDERED: INSULIN SLIDING SCALE (NOVOLOG) 1 VIAL SQ SCH (07:00)
[2018-02-15] MEDS ORDERED: FUROSEMIDE 40 MG/4 ML INJECTABLE VIAL ONE (07:00)
[2018-02-15] MEDS ORDERED: chlordiazePOXIDE HCL 25 MG CAPSULE PO PRN (07:03)
[2018-02-15] MEDS: INSULIN SLIDING SCALE (NOVOLOG) 1 VIAL SQ SCH ×2 (07:30→16:37)
[2018-02-15 07:55] LABS: COCAINE, UR NEGATIVE ng/ml (CUTOFF=300); METHADONE, UR NEGATIVE ng/ml (CUTOFF=300); OPIATES, URI NEGATIVE ng/ml (CUTOFF=300); PHENCYCLIDINE,URINE NEGATIVE ng/ml (CUTOFF=25); URINE AMPHETAMINES NEGATIVE ng/ml (CUTOFF=500); URINE BARBITURATES NEGATIVE ng/ml (CUTOFF=200)
[2018-02-15 08:14] LABS: BASO % 0.8 % (0-2.0); EOS % 4.6 % (0-4.5); HEMATOCRIT 30.3 % (35.4-49); LYMPH % 20.1 % (8-40); MCH 26.1 pg (25.7-33.7); MEAN CELL VOLUME 79.2 fl (80-96); MONO % 8.2 % (3.8-10.2); NEUT % 66.3 % (42.8-82.8); PLATELET COUNT 238 K/MM3 (134-434); RBC 3.83 M/mm3 (4.00-5.60); RDW 16.3 % (11.9-15.9); WHITE BLOOD COUNT 7.9 K/mm3 (4.0-10.0)
[2018-02-15 08:18] LABS: URINE BENZODIAZEPINES POSITIVE ng/ml (CUTOFF=200)
[2018-02-15 08:24] LABS: INR 0.99 (0.83-1.09); PROTHROMBIN TIME (PATIENT) 11.7 SEC (9.7-13.0)
[2018-02-15 08:27] LABS: ACTIVATED PTT 31.5 SECONDS (25.2-36.5)
[2018-02-15] MEDS ORDERED: chlordiazePOXIDE HCL 25 MG CAPSULE PO SCH (08:30)
[2018-02-15 08:44] LABS: CHOLESTEROL 178 mg/dL (50-200); HDL CHOLESTEROL 47 mg/dL (40-60); TRIGLYCERIDES 253 mg/dL (0-150)
[2018-02-15 08:58] LABS: ALBUMIN 3.2 g/dl (3.4-5.0); ALK PHOS 83 U/L (45-117); ANION GAP 6 MMOL/L (8-16); BILIRUBIN,TOTAL 0.4 mg/dL (0.2-1); BLOOD UREA NITROGEN 14 mg/dL (7-18); CHLORIDE 107 mmol/L (98-107); CO2 25 mmol/L (21-32); CREATININE 1.2 mg/dL (0.55-1.3); GLUCOSE,RANDOM 106 mg/dL (74-106); MAGNESIUM 2.5 mg/dL (1.8-2.4); PHOSPHOROUS 3.5 mg/dL (2.5-4.9); POTASSIUM 4.4 mmol/L (3.5-5.1); SGOT/AST 23 U/L (15-37); SGPT/ALT 15 U/L (13-61); SODIUM 138 mmol/L (136-145); TOT PROT 7.1 g/dl (6.4-8.2)
[2018-02-15] MEDS ORDERED: CLOPIDOGREL BISULFATE 75 MG TABLET (FP) PO SCH (10:00)
[2018-02-15] MEDS ORDERED: ASPIRIN 81 MG CHEWABLE TABLETS PO SCH (10:00)
[2018-02-15] MEDS ORDERED: ENALAPRIL MALEATE 10 MG TABLET (FP) PO SCH (10:00)
[2018-02-15] MEDS: HEPARIN NA (PORCINE) 5,000 UNITS/ML 1ML VIAL SQ SCH ×2 (10:00→16:21)
--- NOTE | 2018-02-15 10:39 | HOSP ---
Subjective - Review of Symptoms Events since last encounter: patient seen and examined. he still complains of Chest pain in mid lower chest with radiation to neck and numbness in L upper ext. reports pain is the same since it started at 2 am. he denies fever , chills, cough, or SOB. last cath was 2 months ago in [facility] , and had CABG a year ago. his card is Dr. Bishop at [facility]. last alcohol use was 2 weeks ago, last cocaine use was 3 weeks ago. he comes in from [facility] ( was admitted on 02/11) . Exam: VS reviwed. NAD. CV: RRR, no JVD, no MRG Lungs: CATB ext : no edema , dry scaly skin. Abd: soft, TTP in all quadrants, old surgical scars. hernias . MS: TTP over lower sternum. A/P : 52 y/o man with h/o CAD, s/p CABG, stents, Dm, ALcohol abuse , h/o cocaine use , HLP, and other medical problems who was sent from [facility] [place] for CP. 1- CP: reproducible with palpation, EKG with sinus rhythm, NL axis, TWIN in I, AVL, and flat in V4-6 but no change from 02/11 , Qtc 479. unlikely his chest pain is cardiac. radiation to L arm and neck is suspicious though. - repeat one more trop. - repeat EKG - card consult for next step. - cont asa /PLAVIX - not on BB at home, ( meds were confirmed with him) - increase statin to 40 as LDL is above goal 2- h/o Dm . - SSI here. hold glipizide. - A1c 5.6 , might consider dc on lower dose of glipizide 3- h/o HTN: cont enalapril Physical Examination Vital Signs: Vital Signs Temperature 98.4 F 02/15/18 01:50 Pulse Rate 85 02/15/18 07:14 Respiratory Rate 18 02/15/18 07:14 Blood Pressure 108/62 02/15/18 07:14 O2 Sat by Pulse Oximetry (%) 96 02/15/18 07:14 Labs: CBC, BMP 02/15/18 07:40 02/15/18 07:40
[2018-02-15] MEDS ORDERED: HEPARIN NA (PORCINE) 5,000 UNITS/ML 1ML VIAL ONE (12:00)
[2018-02-15] MEDS ORDERED: CLOPIDOGREL BISULFATE 75 MG TABLET (FP) ONE (12:02)
--- NOTE | 2018-02-15 13:13 | CON.CARD ---
Consult Consult Specialty:: Cardiology Referred by:: Hospitalist Reason for Consultation:: Cardiac evaluation - History of Present Illness Chief Complaint: Chest pain History of Present Illness: Patient is a 52 year old male with underlying history of CAD, CT s/p PCI/stent, type 2 DM, HTN, hypercholesterolemia, CVA and substance abuse with alcohol and cocaine who presents with mid sternal chest discomfort at the detox in [facility]. He states that it was sharp which occurred at rest and states radiation to left arm and neck. He also complained of shortness of breath and orthopnea. He denies nausea, vomiting, diarrhea or abdominal pain. He denies headache or lightheadedness. He is lying on stretcher, but drowsy. He states that PCI was performed last year at [facility]. - History Source History Provided By: Patient, Medical Record Limitations to Obtaining History: Clinical Condition - Past Medical History Cardio/Vascular: Yes: CAD, HTN, Hyperlipdemia, CT Psych: Yes: Addictions (alcohol, cocaine) Endocrine: Yes: Diabetes Mellitus - Past Surgical History Past Surgical History: Yes: Hernia Repair (umblical hernia repair 3 years ago) - Alcohol/Substance Use Hx Alcohol Use: Yes History of Substance Use: reports: Cocaine - Smoking History Smoking history: Current every day smoker Have you smoked in the past 12 months: Yes Aproximately how many cigarettes per day: 20 - Social History Usual Living Arrangement: Alone History of Recent Travel: No Home Medications - Allergies Allergies/Adverse Reactions: Allergies Allergy/AdvReac Type Severity Reaction Status Date / Time chicken derived Allergy Severe Verified 02/15/18 02:07 Fish Containing Products Allergy Unknown Verified 02/15/18 02:07 No Known Drug Allergies Allergy Verified 02/15/18 02:07 turkey Allergy Intermediate Uncoded 02/15/18 02:07 - Home Medications Home Medications: Ambulatory Orders Atorvastatin Ca [Lipitor] 20 mg PO HS #0 tablet 01/30/13 Clopidogrel Bisulfate [Plavix -] 75 mg PO DAILY #1 tablet 01/30/13 Enalapril Maleate [Vasotec -] 20 mg PO DAILY #1 tablet 01/30/13 Aspirin [ASA -] 81 mg PO DAILY #30 tab.chew 04/30/13 metFORMIN HCL [Glucophage -] 500 mg PO BIDAC #60 tablet 08/23/13 Glipizide Xl [Glucotrol Xl -] 1 tab PO DAILY 02/15/18 Family Disease History - Family Disease History Family Disease History: Diabetes: Brother (ASTHMA), Sister (ASTHMA, DM), Other: Mother (ASTHMA) Review of Systems - Review of Systems Constitutional: denies: Chills, Fever Cardiovascular: reports: Chest Pain, Shortness of Breath. denies: Palpitations Respiratory: reports: Orthopnea, SOB. denies: Cough, Hemoptysis, PND Gastrointestinal: denies: Abdominal Pain, Constipation, Diarrhea, Melena, Nausea , Rectal Bleeding, Vomiting Genitourinary: denies: Dysuria, Hematuria Musculoskeletal: denies: Back Pain, Joint Pain Neurological: denies: Dizziness, Headache, Seizure, Syncope Vital Signs: Vital Signs Temperature 98.4 F 02/15/18 01:50 Pulse Rate 85 02/15/18 07:14 Respiratory Rate 18 02/15/18 07:14 Blood Pressure 108/62 02/15/18 07:14 O2 Sat by Pulse Oximetry (%) 96 02/15/18 07:14 Eyes: Yes: PERRL HENT: Yes: Atraumatic Neck: Yes: Supple Respiratory: Yes: Regular Gastrointestinal: Yes: Normal Bowel Sounds, Soft. No: Tenderness Cardiovascular: Yes: Regular Rate and Rhythm JVD: No Carotid Bruit: No PMI: Non-Displaced Heart Sounds: Yes: S1, S2. No: Gallop Edema: No - Other Data Labs, Other Data: CBC, BMP 02/15/18 07:40 02/15/18 07:40 INR, PTT INR 0.99 (0.83-1.09) 02/15/18 07:40 Troponin, BNP 02/15/18 02/15/18 02:55 07:40 Troponin I < 0.02 < 0.02 B-Natriuretic Peptide 766.3 H Sinus rhythm with nonspecific T wave abnormality Imaging - Results Chest X-ray: Report Reviewed (Large heart with prominent hilar marking) EKG: Report Reviewed Problem List - Problems (1) CAD (coronary artery disease) Code(s): I25.10 - ATHSCL HEART DISEASE OF [place] CORONARY ARTERY W/O ANG PCTRS (2) CVA (cerebral vascular accident) Code(s): I63.9 - CEREBRAL INFARCTION, UNSPECIFIED Qualifiers: CVA mechanism: unspecified Qualified Code(s): I63.9 - Cerebral infarction, unspecified (3) Substance abuse Code(s): F19.10 - OTHER PSYCHOACTIVE SUBSTANCE ABUSE, UNCOMPLICATED (4) Chest pain Code(s): R07.9 - CHEST PAIN, UNSPECIFIED Qualifiers: Chest pain type: unspecified Qualified Code(s): R07.9 - Chest pain, unspecified (5) Alcohol dependence Code(s): F10.20 - ALCOHOL DEPENDENCE, UNCOMPLICATED (6) Cocaine dependence Code(s): F14.20 - COCAINE DEPENDENCE, UNCOMPLICATED Qualifiers: Substance use status: uncomplicated Qualified Code(s): F14.20 - Cocaine dependence, uncomplicated (7) Diabetes mellitus type 2 in obese Code(s): E11.9 - TYPE 2 DIABETES MELLITUS WITHOUT COMPLICATIONS; E66.9 - OBESITY , UNSPECIFIED (8) Nicotine dependence Code(s): F17.200 - NICOTINE DEPENDENCE, UNSPECIFIED, UNCOMPLICATED Qualifiers: Nicotine product type: cigarettes Substance use status: in withdrawal Qualified Code(s): F17.213 - Nicotine dependence, cigarettes, with withdrawal (9) Hypercholesteremia Code(s): E78.0 - PURE HYPERCHOLESTEROLEMIA * DO NOT USE * (10) Hypertension Code(s): I10 - ESSENTIAL (PRIMARY) HYPERTENSION Qualifiers: Hypertension type: essential hypertension Qualified Code(s): I10 - Essential (primary) hypertension (11) Myocardial infarction, old Code(s): I25.2 - OLD MYOCARDIAL INFARCTION (12) Stented coronary artery Code(s): Z95.5 - PRESENCE OF CORONARY ANGIOPLASTY IMPLANT AND GRAFT Assessment/Plan 1. Chest pain with underlying CAD, CT s/p PCI/stent 2. Type 2 DM 3. HTN 4. Hypercholesterolemia 5. CVA 6. Substance abuse, ETOH and Cocaine PLAN: 1. Serial cardiac enzymes 2. ASA and Plavix 3. Lipitor 4. Enalapril 5. Avoid beta jignesh for now 6. Cardiac work up including stress testing can be done as outpatient 7. Consider echocardiography to assess LV/RV and valvular function Patient had seen a card seller affiliated with [facility] Noah Poon MD
--- NOTE | 2018-02-15 15:01 | ECHO ---
Name: JEFF ANDERSON Exam:Adult Echocardiogram Study Date: 02/15/2018 10:21 AM Age: 52 yrs Reason For Study: R/O ACS S/P CABG S/P 6 STENTS Height: 69 in Weight: 248 lb BSA: 2.3 m2 MMode/2D Measurements & Calculations IVSd: 0.79 cm Ao root diam: 3.1 cm LVIDd: 5.3 cm LA dimension: 3.4 cm LVIDs: 3.9 cm LVPWd: 0.80 cm EDV(Teich): 132.5 ml ESV(Teich): 64.3 ml Doppler Measurements & Calculations MV E max aracely: 82.4 cm/sec Ao V2 max: 101.8 cm/sec MV A max aracely: 60.7 cm/sec Ao max P.1 mmHg MV E/A: 1.4 MV dec time: 0.20 sec LV V1 max P.9 mmHg MR max aracely: 423.5 cm/sec LV V1 max: 69.1 cm/sec MR max P.7 mmHg TR max aracely: 212.1 cm/sec PI end-d aracely: 179.9 cm/sec TR max P.1 mmHg Med Peak E' Aracely: 8.0 cm/sec Med E/e': 10.3 Lat Peak E' Aracely: 9.9 cm/sec Lat E/e': 8.3 Procedure A two-dimensional transthoracic echocardiogram with color flow and Doppler was performed. The patient was in normal sinus rhythm during the exam. Left Ventricle The left ventricular size, thickness and function are normal. Ejection Fraction = 55. Right Ventricle The right ventricle is normal in size and function. Atria Normal left and right atrial size and function. Mitral Valve The mitral valve is grossly normal. There is trace mitral regurgitation. Tricuspid Valve The tricuspid valve is not well visualized, but is grossly normal. There is mild tricuspid regurgitat ion. Aortic Valve The aortic valve is normal in structure and function. No hemodynamically significant valvular aortic stenosis. Pulmonic Valve The pulmonic valve is not well seen, but is grossly normal. Mild pulmonic valvular regurgitation. Great Vessels The aortic root is normal size. Pericardium/Pleura There is no pericardial effusion. Interpretation Summary The left ventricular size, thickness and function are normal Normal left and right atrial size and function. There is trace mitral regurgitation. There is mild tricuspid regurgitation. Mild pulmonic valvular regurgitation. No hemodynamically significant valvular aortic stenosis. There is no pericardial effusion. MD Romel Plasencia 02/15/2018 03:00 PM
--- NOTE | 2018-02-15 16:24 | EKG ---
Test Reason : Blood Pressure : / mmHG Vent. Rate : 084 BPM Atrial Rate : 084 BPM P-R Int : 146 ms QRS Dur : 092 ms QT Int : 406 ms P-R-T Axes : 068 057 109 degrees QTc Int : 479 ms NORMAL SINUS RHYTHM T WAVE ABNORMALITY, CONSIDER LATERAL ISCHEMIA PROLONGED QT ABNORMAL ECG WHEN COMPARED WITH ECG OF 15-FEB-2018 01:48, NO SIGNIFICANT CHANGE WAS FOUND Confirmed by MD Erinn, Romel ([id number]) on 02/15/2018 4:23:50 PM Referred By: Confirmed By:Romel Plasencia MD
--- NOTE | 2018-02-15 18:38 | DS ---
Physical Examination Vital Signs: Vital Signs Temperature 98.4 F 02/15/18 01:50 Pulse Rate 79 02/15/18 16:43 Respiratory Rate 18 02/15/18 16:43 Blood Pressure 107/68 02/15/18 16:43 O2 Sat by Pulse Oximetry (%) 98 02/15/18 16:43 Findings/Remarks: Physical exam from earlier this am NAD. CV: RRR, no JVD, no MRG Lungs: CATB ext : no edema , dry scaly skin. Abd: soft, TTP in all quadrants, old surgical scars. hernias . MS: TTP over lower sternum. Labs: CBC, BMP 02/15/18 07:40 02/15/18 07:40 Discharge Summary Reason For Visit: CHEST PAIN Current Active Problems Chest pain (Acute) Substance abuse (Acute) CAD (coronary artery disease) (Chronic) Hospital Course: 52 y/o man with h/o CAD, s/p CABG, stents, Dm, ALcohol abuse , h/o cocaine use , HLP, and other medical problems who was sent from [facility] for CP. on admissionhis virals were stable and his cxray did not show pathology. his chest pain was felt to be atypical especially it was reproducible with palpation, EKG with sinus rhythm, NL axis, TWIN in I, AVL, and flat in V4-6 but no change from 02/11 , Qtc 479. he was seen by card and echo was done . ( trace MR, TR, no WMA , nl EF ) [facility] and was advised to follow with his PCP and court liaison fro further w/u if indicated his lipitor was increased to 40 as his LDL was above gaol his glipizide was dc and he was cont on metformin at sc as his A1c was 6.5 he was advised to follow with his court liaison no need to return to [facility] as he finished his detox dc home Condition: Improved - Instructions Diet, Activity, Other Instructions: You were treated for chest pain. your echo did not show significant pathology and your heart enzymes were normal please follow with your primary care doctor follow with your court liaison and inform him of the recent episode of chest pain , for possible need fro further work up. your lipitor was increased to 40 stop your glipizide and continue your metformin ( A1c 6.5 ) you need follow up on your glucose monitoring . check your sugar before each meal Take your discharge paperwork with you to your primary You finished your detox at [facility]. if you are interested in rehab, you can go there and get assessed fro rehabilitation in am Disposition: HOME - Home Medications Comprehensive Discharge Medication List: Ambulatory Orders Clopidogrel Bisulfate [Plavix -] 75 mg PO DAILY #1 tablet 01/30/13 Enalapril Maleate [Vasotec -] 20 mg PO DAILY #1 tablet 01/30/13 Aspirin [ASA -] 81 mg PO DAILY #30 tab.chew 04/30/13 metFORMIN HCL [Glucophage -] 500 mg PO BIDAC #60 tablet 08/23/13 Atorvastatin Ca [Lipitor] 40 mg PO HS #30 tablet 02/15/18 This patient is new to me today: Yes Date on this admission: 02/15/18 Emergency Visit: Yes ED Registration Date: 02/15/18 Care time: The patient presented to the Emergency Department on the above date and was hospitalized for further evaluation of their emergent condition. Critical Care patient: No - Discharge Referral Referred to [facility] Med [facility].C.: No
[2018-02-15 20:00] VITALS: BP 112/70; PULSE 89
[2018-02-15] MEDS ORDERED: ATORVASTATIN CA 20 MG TABLET (FP) PO SCH ×2 (22:00)
[2018-02-16] MEDS ORDERED: chlordiazePOXIDE HCL 25 MG CAPSULE PO SCH (05:00)
[2018-02-17] MEDS ORDERED: chlordiazePOXIDE 5 MG CAPSULE PO SCH (05:00)
[2018-02-18] MEDS ORDERED: chlordiazePOXIDE HCL 10 MG CAPSULE PO SCH (05:00)
== END 2018-02-15 20:18 | disposition home or self-care (01) ==
LOC: JER 01:49 → JERBED 04:29
PROVIDERS: ADMIT Internal Medicine; ATTEND Internal Medicine
PROC: 3E033GC Introduction of Other Therapeutic Substance into Peripheral Vein, Percutaneous Approach (ICD-10-PCS; principal; 2018-02-15)
DX: R07.9 Chest pain, unspecified (principal); I10 Essential (primary) hypertension; I25.2 Old myocardial infarction; I25.10 Atherosclerotic heart disease of native coronary artery without angina pectoris; E78.5 Hyperlipidemia, unspecified; E11.9 Type 2 diabetes mellitus without complications; F10.20 Alcohol dependence, uncomplicated; F14.20 Cocaine dependence, uncomplicated; F17.210 Nicotine dependence, cigarettes, uncomplicated; D64.9 Anemia, unspecified; R79.89 Other specified abnormal findings of blood chemistry; E83.42 Hypomagnesemia; E88.09 Other disorders of plasma-protein metabolism, not elsewhere classified; E66.9 Obesity, unspecified; Z68.36 Body mass index [BMI] 36.0-36.9, adult; Z95.5 Presence of coronary angioplasty implant and graft; Z95.1 Presence of aortocoronary bypass graft; Z86.73 Personal history of transient ischemic attack (TIA), and cerebral infarction without residual deficits; Z91.012 Allergy to eggs; Z79.82 Long term (current) use of aspirin; Z79.84 Long term (current) use of oral hypoglycemic drugs
CPT/HCPCS: 36415; 71045-TC-FY; 80053; 80061; 80307; 82550; 82553; 82962; 83036; 83721; 83735; 83880; 84100; 84443; 84484; 85025; 85610; 85730; 93005; 93010; 93306-TC; 96374; 96375; 99285-25; G0378

== ENCOUNTER 2018-03-04 11:25 | Inpatient (IN) | payer OTHER ==
[2018-03-04 11:46] VITALS: BMI 42.8
--- NOTE | 2018-03-04 12:13 | HP ---
CIWA Score - Admission Criteria [facility] Guidelines: Admission for Medically Managed Detox: Requires at least one of the followin. CIWA greater than 12 2. Seizures within the past 24 hours 3. Delirium tremens within the past 24 hours 4. Hallucinations within the past 24 hours 5. Acute intervention needed for co occurring medical disorder 6. Acute intervention needed for co occurring psychiatric disorder 7. Severe withdrawal that cannot be handled at a lower level of care (continued vomiting, continued diarrhea, abnormal vital signs) requiring intravenous medication and/or fluids 8. Admission ROS [facility] Allergies/Adverse Reactions: Allergies Allergy/AdvReac Type Severity Reaction Status Date / Time chicken derived Allergy Severe Verified 02/15/18 02:07 Fish Containing Products Allergy Unknown Verified 03/04/18 12:40 No Known Drug Allergies Allergy Verified 03/04/18 12:40 turkey Allergy Intermediate Uncoded 03/04/18 12:40 History of Present Illness: patient here requesting rehab from etoh use , reports 2 pints/day , latest use 5 days ago s/p detox @ [facility] , direct transfer per patient was picked up from facility no paperwork available, denies prior h/o seizures , blackouts , denies falls while intoxicated . Patient reports etoh use x 33 years , has been to detox before today, longest sobriety x 4 months . utox + bzo [place] 0.000 PMhx : DM II , obesity , HTN PSHx : umbilical hernia , cardiac stenting x 6 ( most recently 1 years ago, states 6 separate procedures ) Psych : SAD meds : Glucophage, glipizide , enalapril ( did not bring meds ) pharmacy [facility] [phone] pharmacist verified : atorvastatin 40 , risperidone 2 mg , cartia 120 mg , aspirin 81 , sertraline 50, omeprazole 40 , Clopidogrel 75 , ntg 0.4 , Metformin 500 bid , lisinopril 2.5 mg q d , vitamin b 12 . Meds rx 02/15 . tobacco: 1/2 ppd , does not want nrt . Exam Limitations: No Limitations - Ebola screening Have you traveled outside of the country in the last 21 days: No Have you had contact with anyone from an Ebola affected area: No Have you been sick,other than usual withdrawal symptoms: No - Review of Systems Constitutional: No Symptoms Reported EENT: reports: No Symptoms Reported Respiratory: reports: No Symptoms reported Cardiac: reports: No Symptoms Reported GI: reports: No Symptoms Reported : reports: No Symptoms Reported Musculoskeletal: reports: No Symptoms Reported Integumentary: reports: No Symptoms Reported Neuro: reports: No Symptoms reported Endocrine: reports: See HPI Psychiatric: reports: Orientated x3, other (per patient thinks dx SAD) Patient History - Patient Medical History Hx Anemia: No Hx Asthma: No Hx Chronic Obstructive Pulmonary Disease (COPD): No Hx Cancer: No Hx Cardiac Disorders: No Hx Congestive Heart Failure: No Hx Hypertension: Yes (on med) Hx Hypercholesterolemia: Yes (on med; lipitor 20 mg daily) Hx Pacemaker: No HX Cerebrovascular Accident: No Hx Seizures: No Hx Dementia: No Hx Diabetes: Yes (metformin 500 mg bid) Hx Gastrointestinal Disorders: No Hx Liver Disease: No Hx Genitourinary Disorders: No Hx Sexually Transmitted Disorders: No Hx Renal Disease (ESRD): No Hx Thyroid Disease: No Hx Human Immunodeficiency Virus (HIV): No (NEGATIVE HX last 12/21 ) Hx Hepatitis C: No (DENIES) Hx Depression: No Hx Suicide Attempt: No Hx Bipolar Disorder: No Hx Schizophrenia: No - Patient Surgical History Past Surgical History: Yes Hx Neurologic Surgery: No Hx Cataract Extraction: No Hx Cardiac Surgery: Yes (heart attack x1, 5 stents - 2011; 6 STENTS NOW,LAST ONE 2016.) Hx Lung Surgery: No Hx Breast Surgery: No Hx Breast Biopsy: No Hx Abdominal Surgery: Yes (umblical hernia repair [id number] [place]) Hx Appendectomy: No Hx Cholecystectomy: No Hx Genitourinary Surgery: No Hx Section: No Hx Orthopedic Surgery: No Anesthesia Reaction: No - PPD History Date: 02/13/18 Results: 0MM - Smoking Cessation Smoking history: Current every day smoker Have you smoked in the past 12 months: Yes Aproximately how many cigarettes per day: 20 Cigars Per Day: 0 Hx Chewing Tobacco Use: No Initiated information on smoking cessation: No - Substances Abused Alcohol Route: Oral Frequency: 3-6 times per week Amount used: 2 PINTS OF RUM Age of first use: 18 Date of Last Use: 02/27/18 Cocaine Route: Inhalation Frequency: 1-2 times per week Amount used: 2 GRAMS Age of first use: 20 Date of Last Use: 02/26/18 Family Disease History - Family Disease History Family Disease History: Diabetes: Brother (ASTHMA), Sister (ASTHMA, DM), Other: Mother (ASTHMA) Admission Physical Exam [facility] - Vital Signs Vital Signs: Vital Signs - 24 hr 03/04/18 11:44 Temperature 97.3 F L Pulse Rate 103 H Respiratory 18 Rate Blood Pressure 156/73 - Physical General Appearance: Yes: Disheveled HEENTM: Yes: EOMI, Hearing grossly Normal, Normocephalic, Normal Voice, Pharynx Normal Respiratory: Yes: Chest Non-Tender, Lungs Clear, Normal Breath Sounds Neck: Yes: No masses,lesions,Nodules, Trachea in good position Breast: Yes: Breast Exam Deferred Cardiology: Yes: Regular Rhythm, Regular Rate, S1, S2, Tachycardia Abdominal: Yes: Soft, Protuberent, Surgical Scar Genitourinary: Yes: Within Normal Limits Back: Yes: Normal Inspection Musculoskeletal: Yes: full range of Motion, Gait Steady Extremities: Yes: Normal Capillary Refill, Normal Range of Motion Neurological: Yes: Motor Strength 5/5, Normal Mood/Affect - Diagnostic (1) Alcohol dependence Current Visit: No Status: Chronic (2) Diabetes mellitus type 2 in obese Current Visit: No Status: Chronic (3) Nicotine dependence Current Visit: No Status: Chronic Qualifiers: Nicotine product type: cigarettes Substance use status: in withdrawal Qualified Code(s): F17.213 - Nicotine dependence, cigarettes, with withdrawal (4) CAD (coronary artery disease) Current Visit: No Status: Chronic (5) Hypercholesteremia Current Visit: No Status: Chronic (6) Hypertension Current Visit: No Status: Chronic Qualifiers: Hypertension type: essential hypertension Qualified Code(s): I10 - Essential (primary) hypertension (7) Obesity (BMI 30-39.9) Current Visit: No Status: Chronic (8) Stented coronary artery Current Visit: No Status: Chronic BHS Breath Alcohol Content Breath Alcohol Content: 0 Urine Drug Screen - Results Drug Screen Negative: No Urine Drug Screen Results: BZO-Benzodiazepines
[2018-03-04] MEDS ORDERED: guaiFENesin/D-METHORPHAN HB 10 ML UNIT-DOSE CUPS PO PRN (12:26)
[2018-03-04] MEDS ORDERED: MAGNESIUM HYDROX 2400MG/30ML ORAL SUSPENSION 30 ML CUP PO PRN (12:26)
[2018-03-04] MEDS ORDERED: MAGNESIUM CITRATE 300 ML BOTTLE PO PRN (12:26)
[2018-03-04] MEDS ORDERED: MENTHOL/PHENOL 1 EACH UD MM PRN (12:26)
[2018-03-04] MEDS ORDERED: P-EPHED 60MG/TRIPROLIDI 2.5MG TABLET PO PRN (12:26)
[2018-03-04] MEDS: metFORMIN HCL 500 MG TABLET (FP) PO SCH (16:30)
[2018-03-04] MEDS: INSULIN SLIDING SCALE (NOVOLOG) 1 VIAL SQ SCH ×2 (16:31→22:20)
[2018-03-04] MEDS ORDERED: cloNIDine HCL 0.1 MG TABLET PO ONE (18:45)
[2018-03-04] MEDS ORDERED: MELATONIN 5 MG TABLETS PO PRN (22:00)
[2018-03-04] MEDS: ATORVASTATIN CA 40 MG TABLET (FP) PO SCH (22:21)
[2018-03-04] MEDS: THIAMINE HCL 100 MG TABLET (FP) PO SCH (22:21)
[2018-03-05] MEDS: ACETAMINOPHEN 325 MG TABLET (FP) PO PRN (03:35)
[2018-03-05] MEDS: MAG HYDROX/AL HYDROX/SIMETH 30 ML UNIT-DOSE CUP PO PRN (03:36)
--- NOTE | 2018-03-05 03:37 | PN ---
S Progress Note Note: ASKED TO SEE PATIENT FOR C/O C.P. PT REPORTS CHEST PAIN POINTING TO EPIGASTRIC AREA 11/12. DENIES RADIATNG PAIN. REPORTS NUMBNESS TO LEFT ARM. DENIES N/V, FEVER, CHILLS, SOB, CLIENT SEEN PACING ON THE UNIT. A/O X3 NAD, OBESE WITH PROTRUBENT ABDOMEN LUNGS- CTAB 02SAT RA 95% CV RRR EXTREMITIES- FROM W/O LIMITATION. GOOD STRENGTH NOTED Vital Signs - 8 hr 03/05/18 03/05/18 00:30 03:07 Pulse Rate 92 H Respiratory 18 18 Rate Blood Pressure 130/73 EKG C/W WITH PREVIOUS EKG DONE 2 WEEKS AGO NO CHANGES NOTED NSR T WAVE ABNORMALITY CONSIDER LATERAL ISCHEMIA PROLONGED QT QT/QTC 436/502 MEDS REVIEWED FOR ANY PROLONGING QTC AGENTS CLIENT WAS SEEN IN ER ON 02/15/2018 FOR SIMILAR C/O. KEPT FOR OBSERVATION GIVEN CARDIAC HX AND DC SAME DAY. TYLENOL AND MAALOX ORDERED. WILL CONT TO MONITOR CLOSELY FOR WORSENING OR UNRELIEVED PAIN
[2018-03-05] MEDS: metFORMIN HCL 500 MG TABLET (FP) PO SCH ×2 (06:55→16:36)
[2018-03-05] MEDS: INSULIN SLIDING SCALE (NOVOLOG) 1 VIAL SQ SCH ×4 (06:56→21:46)
[2018-03-05] MEDS: glipiZIDE-XL 10 MG TAB.ER.24 (FP) PO SCH (07:00)
[2018-03-05] MEDS: ASPIRIN 81 MG CHEWABLE TABLETS PO SCH (10:24)
[2018-03-05] MEDS: PRENATAL VITAMINS W/ FOLIC ACID TABLET (FP) PO SCH (10:24)
[2018-03-05] MEDS: ENALAPRIL MALEATE 10 MG TABLET (FP) PO SCH (10:24)
[2018-03-05] MEDS: CLOPIDOGREL BISULFATE 75 MG TABLET (FP) PO SCH (10:25)
[2018-03-05] MEDS: LISINOPRIL 5 MG TABLET (FP) PO SCH (10:25)
[2018-03-05] MEDS ORDERED: INSULIN (NOVOLOG) ASPART 100 UNITS/ML 10ML VIAL ONE (11:42)
[2018-03-05] MEDS: THIAMINE HCL 100 MG TABLET (FP) PO SCH (21:43)
[2018-03-05] MEDS: ATORVASTATIN CA 40 MG TABLET (FP) PO SCH (21:43)
[2018-03-06] MEDS: MAG HYDROX/AL HYDROX/SIMETH 30 ML UNIT-DOSE CUP PO PRN (01:43)
[2018-03-06] MEDS: ACETAMINOPHEN 325 MG TABLET (FP) PO PRN (01:43)
[2018-03-06] MEDS: metFORMIN HCL 500 MG TABLET (FP) PO SCH ×2 (06:09→16:47)
[2018-03-06] MEDS: INSULIN SLIDING SCALE (NOVOLOG) 1 VIAL SQ SCH ×5 (07:24→22:11)
[2018-03-06 07:27] VITALS: PULSE 82; TEMP 98.5
[2018-03-06] MEDS ORDERED: INSULIN (NOVOLOG) ASPART 100 UNITS/ML 10ML VIAL ONE (07:37)
[2018-03-06] MEDS: glipiZIDE-XL 10 MG TAB.ER.24 (FP) PO SCH (07:52)
[2018-03-06 09:24] VITALS: BP 112/81
[2018-03-06] MEDS: CLOPIDOGREL BISULFATE 75 MG TABLET (FP) PO SCH (10:19)
[2018-03-06] MEDS: PRENATAL VITAMINS W/ FOLIC ACID TABLET (FP) PO SCH (10:19)
[2018-03-06] MEDS: LISINOPRIL 5 MG TABLET (FP) PO SCH (10:19)
[2018-03-06] MEDS: ENALAPRIL MALEATE 10 MG TABLET (FP) PO SCH (10:19)
[2018-03-06] MEDS: ASPIRIN 81 MG CHEWABLE TABLETS PO SCH (10:19)
--- NOTE | 2018-03-06 20:37 | PN ---
AYAKA Progress Note Note: Psychiatric nurse practitioner business continuity specialist note: Call received by RN stating patient is signing out of rehab. Patient encouraged by staff to remain in rehab but he refused. Pt. signing out of rehab this evening.
[2018-03-06] MEDS: ATORVASTATIN CA 40 MG TABLET (FP) PO SCH (22:10)
[2018-03-06] MEDS: THIAMINE HCL 100 MG TABLET (FP) PO SCH (22:11)
--- NOTE | 2018-03-08 17:04 | EKG ---
Test Reason : Blood Pressure : / mmHG Vent. Rate : 081 BPM Atrial Rate : 081 BPM P-R Int : 142 ms QRS Dur : 082 ms QT Int : 434 ms P-R-T Axes : 061 054 108 degrees QTc Int : 504 ms NORMAL SINUS RHYTHM LOW VOLTAGE QRS T WAVE ABNORMALITY, CONSIDER LATERAL ISCHEMIA PROLONGED QT ABNORMAL ECG Confirmed by MD ANDREW, MINOR ([id number]) on 03/08/2018 5:04:19 PM Referred By: Confirmed By:MINOR MORALES MD
== END 2018-03-06 20:50 | disposition left against medical advice (07) | DRG 770 ==
LOC: YASAS 11:25 → Y5N 15:01
PROVIDERS: ADMIT Psychiatry & Neurology Psychiatry; ATTEND Psychiatry & Neurology Psychiatry
PROC: HZ42ZZZ Group Counseling for Substance Abuse Treatment, Cognitive-Behavioral (ICD-10-PCS; principal; 2018-03-04)
DX: F10.20 Alcohol dependence, uncomplicated (principal); F17.213 Nicotine dependence, cigarettes, with withdrawal; I25.10 Atherosclerotic heart disease of native coronary artery without angina pectoris; I10 Essential (primary) hypertension; Z95.5 Presence of coronary angioplasty implant and graft; I25.2 Old myocardial infarction; E78.00 Pure hypercholesterolemia, unspecified; E11.9 Type 2 diabetes mellitus without complications; Z79.84 Long term (current) use of oral hypoglycemic drugs; E66.9 Obesity, unspecified; Z68.41 Body mass index [BMI] 40.0-44.9, adult
CPT/HCPCS: 82962; 93005; 93010; J0735